=== PATIENT | male | born 1955 | race Caucasian/White ===

== ENCOUNTER 2020-01-31 15:43 | Emergency (ER) | payer SELFPAY ==
[~2020-01-31] VITALS: Ht 177.8 cm; Wt 93.0 kg
--- NOTE | 2020-01-31 16:21 | Emergency Department Note ---
History of Present Illnes History of Present Illness Chief Complaint: Skin Rash or Abscess History of Present Illness This is a 64 year old male, with no significant past medical history, who presents stating that "he needs treatment for parasites." Patient presents with sores on both arms, and he states "that he is infected with parasites." He describes "worms coming out of the wounds." He mentions "roundworms and hookworms." He states that he is homeless and lives out of his truck, which he has done for the past 3 years. 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 He states that his family will not allow him to live with them, "because they all have their own problems." He states that he was treated via a "telephone visit earlier this year, by a doctor in [place] who diagnosed the parasites and prescribed amoxicillin." He states that the infection cleared up at that time. He denies any history of mental illness. Patient denies any fever, chills, nausea, or vomiting. Historian: Patient Arrival Mode: Car Gospel Worker Required: No Onset (how long ago): week(s) Location: arms and legs Quality: sores Radiation: Reports non-radiation Onset quality: gradual Duration (how long): week(s) Timing of current episode: constant Progression: worsening Chronicity: recurrent Context: Denies recent illness, Denies trauma/injury Relieving factors: none Exacerbating factors: none Associated symptoms: Reports denies other symptoms; Denies cough, Denies fever/chills, Denies nausea/vomiting, Denies weakness Treatments prior to arrival: none Past Medical/Family History Physician Review I have reviewed the patient's past medical and family history. Any updates have been documented here. Past Medical History Recent Fever: No Clinical Suspicion of Infectio: No New/Unexplained Change in Ment: No Past Medical History: None Past Surgical History: None Social History Smoking Cessation: Current every day smoker Counseling Performed: Yes Alcohol Use: None Any Illegal Drug Use: No Physically hurt or threatened: No Family History Family history of heart diseas: No (unknown) Other Last Tetanus: unknown Any Pre-Existing Lines (PICC,: No Is patient up to date on immun: No Review of Systems Review of Systems Constitutional: Reports no symptoms EENTM: Reports no symptoms Cardiovascular: Reports no symptoms Respiratory: Reports no symptoms Gastrointestinal: Reports no symptoms Musculoskeletal: Reports no symptoms Integumentary: Reports as per HPI Neurological: Reports no symptoms Psychological: Reports as per HPI Review of other systems: All other systems negative Physical Exam Related Data Vital signs reviewed: Yes Physical Exam CONSTITUTIONAL Constitutional: Present well-developed, Present well-nourished, Present obese; Absent distressed, Absent ill appearing HENT HENT: Present normocephalic, Present atraumatic, Present oropharynx clear/moist, Present dental caries (poor dentition) HENT L/R: Present left ext ear normal, Present right ext ear normal EYES Eyes: Reports PERRL, Reports conjunctivae normal NECK Neck: Present ROM normal PULMONARY Pulmonary: Present effort normal, Present breath sounds normal CARDIOVASCULAR GASTROINTESTINAL GENITOURINARY SKIN Skin: Present warm, Present dry, Present erythema (both arms appear mildly sunburned;), Present lesion (oval shaped lesions with thick eschar on BUE; small, round lesions with thin eschar on BLE - looks like insect bites;) MUSCULOSKELETAL NEUROLOGICAL Neurological: Present alert, Present oriented x 3, Present no gross motor or sensory deficits; Absent cranial nerve deficit, Absent weakness PSYCHOLOGICAL Psychological: Present mood/affect normal, Present judgement normal Assessment & Plan Medical Decision Making MDM - Patient's lesions may be bug bites, from living in his truck, that he appears to be picking at. There may be some superficial infection, so patient be placed on antibiotics, to cover MRSA, since he states he's had similar rash in the past. - Patient's belief that these lesions are due to worms/parasites that he is infected with, is a delusion. He does not appear to be confused, and he is not combative. The sores on his arms, that he appears to be continuously picking at, along with his poor dentition may indicate some drug use, though he currently denies any drug use. Patient is not suicidal or homicidal. Keep your fingernails short, so as not to scratch the skin lesions, as this can cause them to spread. Keep the skin clean, and dry, using antibacterial soap at least once daily. Take all of both antibiotics, as directed. Return to the ER, if you develop any fever, vomiting, or the skin infection worsens. Assessment & Plan Final Impression: (1) Impetigo Depart Disposition: HOME, SELF-snf Meds Active Scripts Clindamycin Hcl (CLINDAMYCIN HCL) 300 Mg Capsule, 1 TAB PO Q6H for infection, #10 TAB 0 Refills Prov:JERAMIE CALIXTO MD 01/31/20 Cephalexin (CEPHALEXIN) 500 Mg Capsule, 500 MG PO QID for skin infection for 10 Days, #40 CAP 0 Refills Prov:JERAMIE CALIXTO MD 01/31/20 JERAMIE CALIXTO MD Jan 31, 2020 16:20
[2020-01-31] MEDS ORDERED: CEPHALEXIN500 MG PO (16:23)
[2020-01-31] MEDS ORDERED: CLINDAMYCIN HC300 MG PO (16:26)
== END 2020-01-31 17:04 | disposition home or self-care (01) ==
LOC: FSED 16:25
DX: L01.00 Impetigo, unspecified (principal); F17.210 Nicotine dependence, cigarettes, uncomplicated
CPT/HCPCS: 99282